=== PATIENT | male | born 1950 | race Caucasian/White ===

== ENCOUNTER → 2019-03-13 | Day surgery (SDC) | payer MEDICARE, OTHER ==
[~2019-03-13] MED LIST: ALFU10TA3 PO; ASPI-482 PO; IV RINGERS,LACTATED 1000ML 1,000 ML IV SCH; MIRA50TA PO; MULT-245 PO; OLME1TAB49 PO; OLME40TA12 PO; OMEG1CAP6 PO; OMEP20CA10 PO; OXYB5TAB10 PO; PROPOFOL 20 ML IV ONE; SIMV20TA3 PO; UBID50TA PO
[2019-03-13 13:35] VITALS: BP 141/80
--- NOTE | 2019-03-14 14:06 | PATHOLOGY ---
[facility] Accession Number: [id number] . 01 Material submitted: . esophagus - DISTAL ESOPHAGUS BIOPSIES. Modifiers: distal . 01 Clinical history: . Nausea, abdominal pain . 02 Diagnosis: Esophageal biopsies, distal esophagus: - Segments of hyperplastic squamous esophageal mucosa consistent with reflux esophagitis. (JPM:rut; 03/14/2019) QMS 03/14/2019 0848 Local . 02 Comment: Sections of the distal esophageal biopsy reveal segments of tangentially oriented, hyperplastic squamous esophageal mucosa. The findings are consistent with reflux esophagitis. There is no evidence of Lamb's change, dysplasia or malignancy. (JPM:rut; 03/14/2019) . 02 Electronically signed: . Edmar Cisneros MD, Pathologist NPI- [id number] . 01 Gross description: . Received in formalin labeled "Sebastian Enrique, distal esophagus BX's," are 3 segments of mccoy soft tissue measuring 0.9 x 0.8 x 0.2 cm in aggregate dimensions and ranging from 0.3 to 0.5 cm in maximum dimension. The specimen is submitted entirely in cassette A1. (TSD; 03/13/2019) TOB/TOB 03/13/2019 1754 Local . 02 Pathologist provided ICD-10: K21.0 . 02 CPT . 892052 Specimen Comment: A courtesy copy of this report has been sent to Specimen Comment: [phone], . Specimen Comment: Report sent to / DR PURDY Performed at: 01 [facility] [id number] [facility] [address], [place], [place] [id number] MD Isaiah Nails MD Phone: [phone] Performed at: 02 [facility] [address] [place], [place] [id number] MD Edmar Cisneros MD Phone: [phone]
== END ==
LOC: ENDOS 11:32
PROVIDERS: ATTEND Internal Medicine Gastroenterology
DX: R10.13 Epigastric pain (principal); K21.0 Gastro-esophageal reflux disease with esophagitis; K31.7 Polyp of stomach and duodenum; K44.9 Diaphragmatic hernia without obstruction or gangrene; G47.30 Sleep apnea, unspecified; E78.00 Pure hypercholesterolemia, unspecified; I13.10 Hypertensive heart and chronic kidney disease without heart failure, with stage 1 through stage 4 chronic kidney disease, or unspecified chronic kidney disease; N18.9 Chronic kidney disease, unspecified; F15.90 Other stimulant use, unspecified, uncomplicated; Z85.828 Personal history of other malignant neoplasm of skin; Z72.89 Other problems related to lifestyle; Z72.0 Tobacco use; Z98.52 Vasectomy status; Z87.442 Personal history of urinary calculi; Z87.39 Personal history of other diseases of the musculoskeletal system and connective tissue; Z98.890 Other specified postprocedural states
CPT/HCPCS: 43239; J2704

== ENCOUNTER → 2019-05-27 | Outpatient (CLI) | payer MEDICARE, OTHER ==
[2019-03-13 13:35] VITALS: BP 141/80
[~2019-05-27] VITALS: Ht 170.2 cm; Wt 117.9 kg
[~2019-05-27] MED LIST changes: -ALFU10TA3 PO; +ALFU10TA4 PO; -IV RINGERS,LACTATED 1000ML 1,000 ML IV SCH; -OMEP20CA10 PO; +OMEP20CA16 PO; -PROPOFOL 20 ML IV ONE; +SIMV20TA18 PO; -SIMV20TA3 PO
--- NOTE | 2019-05-27 09:51 | RAD ---
Examination: ABDOMEN LTD History: Epigastric pain, nausea Comparison/Correlation: 04/19/2012 CT images from a real biopsy procedure. 06/01/2015 renal ultrasound exam. Findings: Hyperechoic hepatic echotexture is seen. Liver length of 17.1 cm noted. Common bile duct has a diameter of 0.6 cm. Gallbladder is unremarkable with no cholelithiasis or findings of cholecystitis. Portal venous flow is unremarkable. Right kidney measures 11.9 cm x 5.8 cm x 5 cm. Right renal cyst measuring up to 5 cm x 4.5 cm x 5.4 cm with internal echoes present at the superior pole. No hydronephrosis. Proximal pancreas is normal. Distal pancreas is obscured by bowel gas. Inferior vena cava is unremarkable. Impression: Fatty infiltration of the liver. Right renal upper pole cyst with internal echoes again is seen with increase in size by approximately 2 cm since 06/01/2015. Electronically signed by: Tyrone Chirinos MD (05/27/2019 9:48 AM) [facility]
[2019-05-27] MEDS: NORMAL SALINE IV ONE (10:01)
[2019-05-27] MEDS: SINCALIDE IV ONE (10:01)
--- NOTE | 2019-05-27 11:17 | RAD ---
Examination: NM HEPATOBILIARY SCAN W PHARM History: Epigastric pain and nausea Comparison/Correlation: 05/27/2019 Limited abdominal ultrasound exam Findings: 5.5 mCi technetium 99m Choletec was intravenously administered for purposes of hepatomegaly scintigraphy. Uptake of radiotracer by liver is normal. Gallbladder is visualized between 5 to 10 minutes. Radiotracer is not evident within the small bowel until approximately 45 minutes. After 60 minutes, 2.36 mcg sincalide was intravenously administered. By 30 minutes, gallbladder ejection fraction of 90 percent is noted. No biliary dilatation identified. Impression: No evidence of cholecystitis. Normal gallbladder ejection fraction. Electronically signed by: Tyrone Chirinos MD (05/27/2019 11:14 AM) [facility]
== END | disposition home or self-care (01) ==
LOC: US 08:24
PROVIDERS: ATTEND Internal Medicine Gastroenterology
DX: K76.0 Fatty (change of) liver, not elsewhere classified (principal); N28.1 Cyst of kidney, acquired
CPT/HCPCS: 76705; 78227; A9537; J2805